=== PATIENT | female | born 1985 | race Caucasian/White ===

== ENCOUNTER 2017-07-30 18:00 | Emergency (ER) | payer OTHER ==
[~2017-07-30] VITALS: Ht 167.6 cm; Wt 74.8 kg
[~2017-07-30 18:00] MED LIST: CEPHALEXIN500 MG PO; IBUPROFEN200 M1 PO; KETOROLAC TROME10 MG PO; LEVOFLOXACIN500 MG PO; LORAZEPAM2 MG PO; MAPAP500 M1 PO; PROBIOTIC1 EAC1 PO; TRAMADOL HCL50 MG PO; YAZ 28 TABLET1 EACH PO
[2017-07-30] MEDS ORDERED: MACROBID 100 M100 MG PO (19:44)
[2017-07-30] MEDS ORDERED: LORAZEPAM1 MG PO (19:44)
== END 2017-07-30 19:50 | disposition home or self-care (01) ==
LOC: ED 18:00
DX: N39.0 Urinary tract infection, site not specified (principal); R16.0 Hepatomegaly, not elsewhere classified; F10.10 Alcohol abuse, uncomplicated; F17.200 Nicotine dependence, unspecified, uncomplicated; Z88.0 Allergy status to penicillin
CPT/HCPCS: 99283

== ENCOUNTER 2021-02-14 18:22 | Emergency (ER) | payer OTHER ==
[~2021-02-14] VITALS: Ht 167.6 cm; Wt 74.8 kg
[~2021-02-14 18:22] MED LIST changes: +KEFLEX500 MG PO; +LORAZEPAM1 MG PO; +MACROBID 100 M100 MG PO
[2021-02-14] MEDS ORDERED: PROTONIX40 MG PO (22:01)
[2021-02-14] MEDS ORDERED: ONDANSETRON ODT4 MG SL (22:01)
== END 2021-02-14 22:29 | disposition home or self-care (01) ==
LOC: ED 18:22
DX: K29.20 Alcoholic gastritis without bleeding (principal); Z88.0 Allergy status to penicillin
CPT/HCPCS: 80053; 81001; 83690; 84703; 85025; 96365; 96375; 99284-25; A9270; G0480; J2405; J3411; J7030

== ENCOUNTER 2021-07-31 23:10 | Emergency (ER) | payer BC, OTHER ==
[~2021-07-31] VITALS: Ht 167.6 cm; Wt 74.8 kg
[~2021-07-31 23:10] MED LIST changes: +ONDANSETRON ODT4 MG SL; +PROTONIX40 MG PO
[2021-08-01] MEDS ORDERED: CEPHALEXIN500 MG PO ×2 (02:54→02:56)
== END 2021-08-01 03:28 | disposition home or self-care (01) ==
LOC: ED 23:10
DX: S81.011A Laceration without foreign body, right knee, initial encounter (principal); W01.198A Fall on same level from slipping, tripping and stumbling with subsequent striking against other object, initial encounter; Z88.0 Allergy status to penicillin
CPT/HCPCS: 12032; 73560; 90471; 90715; 99283-25; A9270

== ENCOUNTER 2022-03-04 05:29 | Inpatient (IN) | payer BC, OTHER ==
[~2022-03-04] VITALS: Ht 167.6 cm; Wt 75.0 kg
--- NOTE | 2022-03-04 22:08 | EKG ---
[facility] [address] [facility] [place] [address] Signed Sinus tachycardia Biatrial enlargement Nonspecific ST abnormality Abnormal ECG No previous ECGs available Confirmed by ZACARIAS MATTHEW MD ([id number] on 03/04/2022 10:08:38 PM Electronically Signed By: ZACARIAS MATTHEW MD 03/04/222207 PATIENT NAME: ANDREE WEIR Electrocardiogram DATE OF : 81 PHYSICIAN: ZACARIAS MATTHEW MD REPORT #: [id number] REPORT IS CONFIDENTIAL AND NOT TO BE RELEASED WITHOUT AUTHORIZATION
[2022-03-07] MEDS ORDERED: HYDROCODON-ACE1 EA10 PO (08:00)
[2022-03-07] MEDS ORDERED: ONDANSETRON ODT8 MG PO (08:01)
[2022-03-07] MEDS ORDERED: POTASSIUM CHLO10 MEQ PO (08:02)
== END 2022-03-07 10:45 | disposition home or self-care (01) | DRG 440 ==
LOC: ED 05:29 → MS 10:16
PROVIDERS: ADMIT Internal Medicine; ATTEND Internal Medicine
PROC: HZ2ZZZZ Detoxification Services for Substance Abuse Treatment (ICD-10-PCS; principal; 2022-03-04)
DX: K85.20 Alcohol induced acute pancreatitis without necrosis or infection (principal); K20.90 Esophagitis, unspecified without bleeding; Z20.822 Contact with and (suspected) exposure to COVID-19; K76.0 Fatty (change of) liver, not elsewhere classified; F32.A Depression, unspecified; E87.6 Hypokalemia; E83.42 Hypomagnesemia; Z87.01 Personal history of pneumonia (recurrent); Z88.0 Allergy status to penicillin; Z79.899 Other long term (current) drug therapy
CPT/HCPCS: 36415; 71045; 74177; 76705; 80048; 80053; 81001; 83605; 83690; 83735; 84703; 85025; 85610; 85730; 87040; 87502; 93005; 93010; A9270; C9113; J0696; J1170; J1790; J1885; J2060; J2270; J2405; J3411; J3475; J3480; J7030; J7060; J7121; Q9967; U0003